=== PATIENT | female | born 2000 | race Caucasian/White ===

== ENCOUNTER 2019-05-30 22:22 | Emergency (ER) | payer OTHER ==
[~2019-05-30] VITALS: Ht 165.1 cm; Wt 90.9 kg
[2019-05-30] MEDS ORDERED: NORCO, ANEXSIA 5/325MG TABLET (HYDROcodone/ACETAMINOPHEN) PO ONE (23:45)
[2019-05-30] MEDS ORDERED: NORC1TAB7 PO (23:57)
[2019-05-31 00:17] VITALS: BP 123/79
--- NOTE | 2019-05-31 08:18 | REP ---
Right calf: Six views. History: Pain after soft on the ice. Findings: On the lateral radiograph centered over the lower calf, there is a posterior tibial fracture which is intra-articular nondisplaced. Ankle mortise is intact. No fibular fracture is appreciated. No other tibial fracture is seen. Impression: Nondisplaced intra-articular posterior malleolar fracture of the distal tibia seen on lateral projection. Electronically Signed by Estuardo Colon MD 05/31/2019 08:10 A
== END 2019-05-31 00:19 | disposition home or self-care (01) ==
LOC: M ED 22:22
DX: S82.54XA Nondisplaced fracture of medial malleolus of right tibia, initial encounter for closed fracture (principal); W01.0XXA Fall on same level from slipping, tripping and stumbling without subsequent striking against object, initial encounter; Y92.9 Unspecified place or not applicable

== ENCOUNTER 2020-04-19 14:01 | Emergency (ER) | payer OTHER ==
[~2020-04-19] VITALS: Ht 165.1 cm; Wt 98.6 kg
[~2020-04-19 14:01] MED LIST: NORC1TAB7 PO
[2020-04-19] MEDS ORDERED: [UNRECOGNIZED DRUG - OTHER] (14:09)
[2020-04-19 15:12] LABS: BASO # 0.1 10^3/uL (0.0-0.2); BASO % 0.8 % (0.0-1.0); EOS # 0.1 10^3/uL (0.0-0.5); EOS % 1.3 % (0.0-3.0); HEMATOCRIT 43.2 % (36.0-47.0); HEMOGLOBIN 14.5 g/dl (12.0-15.5); LYMPH # 2.6 10^3/uL (1.5-5.0); LYMPH % 34.2 % (24.0-44.0); MEAN CORPUSCULAR HEMOGLOBIN 29.4 pg (27.0-33.0); MEAN CORPUSCULAR HGB CONC 33.6 g/dl (32.0-36.5); MEAN CORPUSCULAR VOLUME 87.6 fl (80.0-96.0); MONO # 0.5 10^3/uL (0.0-0.8); MONO % 6.6 % (0.0-5.0); NEUTROPHILS # 4.4 10^3/uL (1.5-8.5); NEUTROPHILS % 56.8 % (36.0-66.0); PLATELET COUNT, AUTOMATED 303 10^3/uL (150-450); RED BLOOD COUNT 4.93 10^6/uL (4.00-5.40); WHITE BLOOD COUNT 7.7 10^3/uL (4.0-10.0)
[2020-04-19 15:32] LABS: ALBUMIN 3.9 GM/DL (3.2-5.2); BILIRUBIN,DIRECT 0.1 MG/DL (0.0-0.2); BILIRUBIN,TOTAL 0.4 MG/DL (0.2-1.0); TOTAL PROTEIN 7.7 GM/DL (6.4-8.2)
[2020-04-19] MEDS ORDERED: NAPROXEN 250 MG TAB PO ONE (17:30)
[2020-04-19] MEDS ORDERED: ONDANSETRON 4 MG ORAL DISINTEGRATING TAB PO ONE (17:30)
--- NOTE | 2020-04-19 18:29 | REPVR ---
PROCEDURE INFORMATION: Exam: US Pelvis Complete, Transabdominal and US Pelvis, Transvaginal US Duplex Artery or Vein of the Abdominal and/or Reproductive Organs, Limited Ovaries Exam date and time: 04/19/2020 5:42 PM Age: 20 years old Clinical indication: Pelvic pain; Additional info: Vaginal discharge and suprapelvic pain beginning this am TECHNIQUE: Imaging protocol: Real-time transabdominal and transvaginal pelvic ultrasound (complete) with image documentation. Transvaginal imaging was used for better evaluation of the endometrium and adnexa. Real-time duplex ultrasound scan of the arterial or venous flow with cole scale, color Doppler flow and spectral waveform analysis with image documentation. Limited duplex exam focused on the ovaries. Duplex images required to evaluate for torsion and other vascular conditions. COMPARISON: No relevant prior studies available. FINDINGS: Uterus/cervix: The uterus measures 8.2 x 4.2 x 4.6 cm transabdominally and 6.9 x 4.0 x 4.7 cm transvaginally. It is anteverted and homogeneous in echotexture, without demonstrated lesion. The endometrium measures up to 13 mm in thickness transabdominally and transvaginally. There is very small fluid in the lower endocervical canal. Right adnexa: The right ovary measures 2.8 x 3.5 x 2.7 cm as seen transvaginally only. It contains a 2.4 x 2.7 x 1.9 cm complex cyst with septation measuring up to approximately 3 mm in thickness. There is normal internal arterial flow to the ovary. Peak systolic velocity 6.4 cm/s, end-diastolic velocity 2.6 cm/s, resistive index 0.59. Left adnexa: The left ovary measures 1.6 x 2.6 x 1.2 cm transabdominally and 2.1 x 2.3 x 1.5 cm transvaginally. It appears unremarkable and demonstrates normal internal arterial flow. Peak systolic velocity 8.2 cm/s, end-diastolic velocity 2.8 cm/s, resistive index 0.66. Intraperitoneal space: Trace free fluid is present in the cul-de-sac. Urinary bladder: The urinary bladder measures 4.8 x 3.6 x 6.9 cm and appears unremarkable. IMPRESSION: 1. 2.7 cm complex right ovarian cyst with septation measuring up to approximately 3 mm in thickness. Consider surgical evaluation. 2. Unremarkable left ovary. 3. Normal internal arterial flow to both ovaries. 4. Endometrium 13 mm in thickness with very small fluid in the lower endocervical canal. Correlate with menstrual status. 5. Trace free fluid. Electronically signed by: Aníbal Tolentino On 04/19/2020 18:28:46 PM
[2020-04-19 18:46] LABS: CHLAMYDIA DNA AMPLIFICATION NEGATIVE (NEGATIVE); GC DNA AMPLIFICATION NEGATIVE (NEGATIVE)
[2020-04-19] MEDS ORDERED: ONDA4TAB6 PO (19:33)
[2020-04-19] MEDS ORDERED: NAPR-837 PO (19:33)
[2020-04-19 19:46] VITALS: BP 138/88
== END 2020-04-19 19:56 | disposition home or self-care (01) ==
LOC: M ED 14:01
DX: N89.8 Other specified noninflammatory disorders of vagina (principal); N83.202 Unspecified ovarian cyst, left side; R10.30 Lower abdominal pain, unspecified; R11.2 Nausea with vomiting, unspecified; R51.9 Headache, unspecified; J45.909 Unspecified asthma, uncomplicated
CPT/HCPCS: 36415; 76856; 80047; 80076; 81001; 83690; 84702; 85025; 87210; 87486; 87581; 87633; 87661; 87798; 99284; Q0162

== ENCOUNTER → 2023-03-31 | Outpatient (CLI) | payer OTHER ==
[~2023-03-31] MED LIST changes: +NAPR-837 PO; +ONDA4TAB6 PO; +[UNRECOGNIZED DRUG - OTHER]
== END ==
LOC: M LAB 15:16
PROVIDERS: ATTEND Advanced Practice Midwife
DX: O20.0 Threatened abortion (principal)

== ENCOUNTER → 2023-04-03 | Outpatient (CLI) | payer OTHER | LOC: M WHC 09:43 | PROVIDERS: ATTEND Obstetrics & Gynecology | DX: O46.90 Antepartum hemorrhage, unspecified, unspecified trimester (principal) ==

== ENCOUNTER → 2023-04-19 | Outpatient (CLI) | payer OTHER ==
[~2023-04-19] MED LIST changes: +LAMO100T80 PO; +MULTTAB20 PO
== END ==
LOC: M PLALAB 08:45
PROVIDERS: ATTEND Specialist
DX: N92.6 Irregular menstruation, unspecified (principal)